=== PATIENT | female | born 2000 | race Two or more races ===

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

== ENCOUNTER → 2021-02-16 | Outpatient (CLI) | payer OTHER ==
[~2021-02-16] MED LIST: ALPR0.5T PO; AMOX500C PO; AZIT250T PO; PRED20TA PO
--- NOTE | 2021-02-16 16:55 | CARD ---
MR#: [id number] Date of Study: 02/16/2021 Ordering Physician: LANDRY MELENDEZ, Referring Physician: LANDRY MELENDEZ, Tech: Racheal Ulrich [facility] APPROVED REPORT EXAM: Two-dimensional and M-mode echocardiogram with Doppler and color Doppler. Other Information Quality : AverageHR: 79bpm Rhythm : NSR INDICATION Palpitations 2D DIMENSIONS RVDd3.0 (2.9-3.5cm)Left Atrium(2D)2.9 (1.6-4.0cm) IVSd0.7 (0.7-1.1cm)Aortic Root(2D)2.3 (2.0-3.7cm) LVDd4.4 (3.9-5.9cm)LVOT Diameter1.7 (1.8-2.4cm) PWd0.8 (0.7-1.1cm)LVDs3.0 (2.5-4.0cm) FS (%) 32.5 %SV53.6 ml LVEF(%)61.1 (>50%) Aortic Valve AoV Peak Wesley.141.8cm/sAoV VTI30.3cm AO Peak GR.8.0mmHgLVOT Peak Wesley.99.6cm/s AO Mean GR.4mmHgAVA (VMAX)1.59cm2 Mitral Valve MV E Olicepbd847.1cm/sMV DECEL [id number] MV A Sraalcuw07.7cm/sE/A Ratio1.8 Pulmonary Valve PV Peak Jnvpjpnf678.3cm/s Tricuspid Valve TR P. Iyvzncae395wn/sTR Peak Gr.20mmHg LEFT VENTRICLE The left ventricle is normal size. There is normal left ventricular wall thickness. The left ventricu lar systolic function is normal. Estimated ejection fraction 55-60%. There is normal LV segmental wa ll motion. The left ventricular diastolic function and filling is normal for age. RIGHT VENTRICLE The right ventricle is normal size. There is normal right ventricular wall thickness. The right ventr icular systolic function is normal. ATRIA The left atrium size is normal. The right atrium size is normal. The interatrial septum is intact wit h no evidence for an atrial septal defect or patent foramen ovale as noted on 2-D or Doppler imaging. AORTIC VALVE The aortic valve is normal in structure and function. Doppler and Color Flow revealed no significant aortic regurgitation. There is no significant aortic valvular stenosis. MITRAL VALVE The mitral valve is normal in structure and function. There is no evidence of mitral valve prolapse. There is no mitral valve stenosis. Doppler and Color-flow revealed trace mitral regurgitation. TRICUSPID VALVE The tricuspid valve is normal in structure and function. Doppler and Color Flow revealed trace tricus pid regurgitation. Estimated ejection fraction 23 mmHg. There is no tricuspid valve stenosis. PULMONIC VALVE The pulmonary valve is normal in structure and function. Doppler and Color Flow revealed mild pulmoni c valvular regurgitation. GREAT VESSELS The aortic root is normal in size. The ascending aorta is normal in size. The IVC is normal in size a nd collapses >50% with inspiration. PERICARDIAL EFFUSION There is no evidence of significant pericardial effusion. Critical Notification Critical Value: No <Conclusion> The left ventricular systolic function is normal. Estimated ejection fraction 55-60%. There is normal LV segmental wall motion. Trace mitral regurgitation. Trace tricuspid regurgitation. Estimated ejection fraction 23 mmHg. There is no evidence of significant pericardial effusion. Signed by : Gurwinder Lemon, Electronically Approved : 02/16/2021 16:55:01
== END ==
LOC: ECHO 07:27
PROVIDERS: ATTEND Internal Medicine Cardiovascular Disease
DX: I37.1 Nonrheumatic pulmonary valve insufficiency (principal); R01.1 Cardiac murmur, unspecified
CPT/HCPCS: 93306

== ENCOUNTER → 2021-04-03 | Outpatient (CLI) | payer OTHER ==
[~2021-04-03] MED LIST changes: +CONTRAST GIVEN. MC PRN; +IOHEXOL 300 MG/ML 50 ML VIAL. IJ ONE
--- NOTE | 2021-04-03 14:12 | RAD ---
EXAMINATION: DG HYSTEROSALPINGOGRAM W/FLUORO, 04/03/2021 10:49 AM CLINICAL INDICATION: Infertility. TECHNIQUE: The procedure was discussed with the patient via a audioprosthologist and her questions were answe red. A timeout was performed. A speculum was placed within the vagina and the cervix was identified, then cleansed 3 times with Betadine solution. Next, a 5 [place] hysterosalpingogram catheter was adv anced through the cervical os and the 1.5 cc balloon was inflated. Approximately 15 mL of Isovue 250 was then injected under fluoroscopic monitoring and multiple images were obtained. Total fluoroscop ic time was 1.1 minutes. Dose: 5.10 mGy. FINDINGS: Normal morphology of the uterus. Fallopian tubes are normal in caliber and patent. IMPRESSION: Normal hysterosalpingogram. Electronically signed by: Bhavna Back MD (04/03/2021 2:10 PM) [id number]
== END | disposition home or self-care (01) ==
LOC: RAD 10:46
PROVIDERS: ATTEND Obstetrics & Gynecology
DX: N93.9 Abnormal uterine and vaginal bleeding, unspecified (principal); Z79.899 Other long term (current) drug therapy; Z88.8 Allergy status to other drugs, medicaments and biological substances
CPT/HCPCS: 58340; 74740; Q9967

== ENCOUNTER → 2021-04-03 | Outpatient (CLI) | payer OTHER ==
[~2021-04-03] MED LIST changes: -CONTRAST GIVEN. MC PRN; -IOHEXOL 300 MG/ML 50 ML VIAL. IJ ONE
[2021-04-03 10:53] LABS: PREG TEST PT QUAL NEGATIVE (NEG)
== END ==
LOC: LAB 10:14
PROVIDERS: ATTEND Obstetrics & Gynecology
DX: N93.9 Abnormal uterine and vaginal bleeding, unspecified (principal)
CPT/HCPCS: 84703